=== PATIENT | male | born 1960 | race Caucasian/White ===

== ENCOUNTER 2018-08-23 11:30 | Outpatient (RCR) | payer OTHER, MEDICAID, SELFPAY ==
--- NOTE | 2018-08-18 11:05 | ST.OPIE ---
Provider Information Visit Care Team Role Provider Type Chico Osman MD Attending Provider Non-Staff Primary Care Provider Specialty: Medical Address: [address] [place] [address], [place], [address] Email: Speech-Language Pathology Initial Evaluation PROVISIONING ANALYST Cognitive/Memory Evaluation Start: 08/17/18 12:55 Freq: Status: Active Protocol: Document 08/16/18 12:55 TLC (Rec: 08/17/18 13:33 TLC [id number]) Evaluation of Cognition Session Time Visit Start Time 11:30 Visit Stop Time 12:15 Total Visit Minutes 45 Visit Information Visit Number 1 Plan of Care Dates 08/16/18-11/16/18 Next Note Type Next Note Type Treatment Note Referral Referring Physician Phoebe Reason for Referral CVA Past Medical History Patient History Mr. Jon is a right hand dominant 58 year old man with a past medical history of A- fib, not on anticoagulation, who was transferred to [facility] on with a right M2 stroke. He lives at home in [place], [place] with his 4 children and his . 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 Hearing Hearing Level Normal Vision Vision Status Impaired Comments decreased attention to left side [place] Language Language(s) Spoken in the Home Croatian Previous Therapy Previous Speech-Language Therapy Yes History of Therapy He was admitted to inpatient rehab at [facility] on 06/28. He received speech therapy for cognitive impairments and education. Currently, he receives outpatient Occupational therapy for visual attention, divided attention and fine motor skills. - Informal Assessment Receptive Language Normal Yes Expressive Language Normal Yes Assessment Findings Speech assessed informally in conversation. No dysarthria or apraxia observed. Occasional dysfluencies (initial sound repetition) were observed. Per patient, this is not new since his stroke and is not of concern at this time. Mr. Jon denied any difficulty with word finding. He endorses impairments in attention, left neglect, loss of big picture thinking. His adds she has noticed memory issues and decreased awareness of deficits. Formal Assessment Standardized Test Cognitive Linguistic Quick Test Administration Complete Results The CLQT is a criterion- referenced test with severity ratings for two age categories . It was designed to quickly assess the relative status of five cognitive domains ( attention, memory, language, executive functions, and visuospatial skills). Mr. Jon completed most tasks on the CLQT without difficulty including visual scanning symbol cancellation, clock drawing, symbol trail making, confrontation naming, design memory and two mazes. He self-corrected two errors on the clock drawing task. During short story retell, he earned 10 out of 18 points, losing points for leaving off details of the story. During generative naming, he named 15 total animals in one minute with two perseverations and 10 total words that begin with m . He had most difficulty with the design generation task which is a nonlinguistic task of creativity and mental flexibility. In the allotted time, he shannan 9 total designs with 3 perseverated designs. Tasks were scored and severity ratings were gathered based on norms for ages 18-69. Severity ratings for each cognitive domain are listed below. Attention: Within Normal Limits Memory: Within Normal Limits Exectuive Functions: Within Normal Limits Language: Within Normal Limits Visuospatial Skills: Within Normal Limits Clock Drawing: Within Normal Limits - Recommendations Recommendations Despite earning a severity rating score of within normal limits on all cognitive domains, Mr. Jon reports cognitive deficits relative to his own performance pre- stroke. A more thorough examination by a qualified neuropsychologist is recommended. In addition, a follow-up session to review results of testing and discuss and Mrs. Jon's goals is recommended. Inconveniences related to ferry travel from the [facility] will be considered when determining plan of care. A consultative basis may be appropriate in this case. Plan of care development is ongoing. Treatment Goals Short Term Goals and Mrs. Jon will return for a follow-up to include education on results of testing, recommendations and plan of care development. Referrals Other Neuropsychology Total Time Full Evaluation Time 45
--- NOTE | 2018-08-23 14:55 | ST.OPTN ---
Care Team Visit Care Team Role Provider Type Chico Osman MD Attending Provider Non-Staff Primary Care Provider Address: [address] [place] [address], [place], [address] [employer] TECHNICIAN Treatment Note [employer] TECHNICIAN Treatment Note Start: 08/17/18 12:55 Freq: Status: Active Protocol: Document 08/23/18 14:36 TLC (Rec: 08/23/18 14:55 TLC [id number]) Speech Pathology Treatment Note Session Time Visit Start Time 11:30 Visit Stop Time 12:15 Total Visit Minutes 45 Visit Information Visit Number 2 Plan of Care Dates 08/16/18-11/16/18 Insurance Information Lisa Setting Treatment Setting Outpatient Care Visit Type Note Type Treatment Note Next Note Type Next Note Type Treatment Note General Information General Information Mr. Jon is a right hand dominant 58 year old man with a past medical history of A- fib, not on anticoagulation, who was transferred to [facility] on with a right M2 stroke. He lives at home in [place], [place] with his 4 children and his . 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 Subjective Identification Type Name Others Present Family Observations/Patient Presentation Mr. Jon arrived on time accompanied by his who was present during the session . Chief Complaint(s) Cognitive Rehab Expectation/Goals: Patient Goals Return to work, return to driving, be able to multi task Patient Knowledge/Awareness of [employer] TECHNICIAN Role Good in Treatment Objective Treatment Activities Discussed results of Cognitive Linguistic Quick Test and provided education regarding cognitive strengths and weaknesses. Education was provided regarding cognitive process training through puzzles/games/tasks and compensatory strategy training , many of which Mr. Jon already implements. We discussed principles of neuroplasticity as well as spontaneous recovery. Education was provided on how to target focused attention at home and filtering out unimportant incoming stimuli to stay on task. Assessment Patient Response to Treatment Good Rehab Potential Good Impairments Identified Cognitive-Linguistic Skills Progress Towards Goals Good Progress Assessment of Improvement Results of cognitive assessment indicate Mr. Ratliff skills are within normal limits in all cognitive domains tested (memory, attention, visuospatial, executive functions, language) . Despite this, he and his raise concern over difficulty with multi-tasking, insight into deficits and processing speed. At this time , neuropsychologist evaluation is recommended to further assess cognition and determine plan of care. Reviewed with Patient Progress Being Made Home Exercise Program Patient/Caregiver Understanding Good Plan Comment Follow up as needed Length of Session 45 Minutes Therapeutic Contents Client Education Cognitive-Linguistic Training Therapy Recommendations Decrease Frequency of Rehabilitation
--- NOTE | 2018-10-04 10:19 | SLP.IPNOTE ---
Left message with patient's , Christina to follow-up as patient's last visit was 08/23/18.
--- NOTE | 2018-10-27 15:56 | ST.OPDS ---
Care Team Visit Care Team Role Provider Type Chico Osman MD Attending Provider Non-Staff Primary Care Provider Address: [address] [place] [address], [place], [address] FOUNDER CHAIRMAN AND CHIEF CREATIVE OFFICER Treatment Note FOUNDER CHAIRMAN AND CHIEF CREATIVE OFFICER Treatment Note Start: 08/17/18 12:55 Freq: Status: Active Protocol: Document 10/27/18 15:54 TLC (Rec: 10/27/18 15:56 TLC [id number]) Speech Pathology Treatment Note Visit Type Note Type Discharge Summary General Information General Information Mr. Jon is a right hand dominant 58 year old man with a past medical history of A- fib, not on anticoagulation, who was transferred to [facility] on with a right M2 stroke. He lives at home in [place], [place] with his 4 children and his . 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 Assessment Assessment of Improvement Results of cognitive assessment indicate Mr. Jon's skills are within normal limits in all cognitive domains tested (memory, attention, visuospatial, executive functions, language) . Despite this, he and his were concerned with difficulty with multi-tasking, insight into deficits and processing speed. He attended one follow-up session during which training in compensatory strategies and education was provided which they demonstrated understanding of. A neuropsychologist evaluation was recommended to further assess cognition and determine plan of care. He and his verbalized understanding. Plan Therapy Recommendations Discharge from Speech Therapy
== END 2018-10-27 17:05 | disposition home or self-care (01) ==
LOC: SP 11:30
PROVIDERS: PCP Internal Medicine; Visit Provider Internal Medicine
DX: I63.411 Cerebral infarction due to embolism of right middle cerebral artery (principal)
CPT/HCPCS: 96125

== ENCOUNTER 2018-09-06 10:30 | Outpatient (RCR) | payer OTHER, MEDICAID, SELFPAY ==
--- NOTE | 2018-08-04 13:32 | OT.OP.EVAL ---
Visit Care Team Role Provider Type Chico Osman MD Attending Provider Non-Staff Primary Care Provider Specialty: Medical Address: [address] [place] [address], [place], [address] Email: Occupational Therapy Initial Evaluation OT Outpatient Adult Evaluation Start: 08/02/18 12:44 Freq: Status: Active Protocol: Document 07/28/18 12:45 AMS (Rec: 08/02/18 13:44 AMS [email or web address]) General Information Visit Start Time 10:30 Visit Stop Time 11:30 Total Visit Minutes 60 Visit Number 04/07 Plan of Care Dates 07/28/18-10/20/18 Insurance Information [facility] Treatment Setting Outpatient Care Note Type Initial Evaluation Referring Physician Medicine; Zhang Patel MD Reason for Referral R M2 stroke Identification Confirmed Yes Identification Confirmed By ; Christina Medical History Patient is a 58 year-old right -hand dominant male referred to outpatient occupational therapy secondary to R M2 stroke with L visual field cut , L hemiparesis, L sunita- sensory loss, L neglect, impaired cognition. PMH: Significant for chronic a-fib; patient declined cardiac ablation approximately 1 year ago. Received inpatient OT, PT , and CHAIR INSPECTOR AND LEVELER therapy services. Previous Therapy/Therapies Yes Social History Patient resides with his and 4 children in [place], [place] in ranch style home w/ no steps to enter. 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 Cognition Comment Impaired Comments Impaired Vision Comments Impaired Observations Observations Decreased attention to L body of space; verbally reminds self to attend to left side/ body of space. Able to correctly identify 34/36 matches w/ visual scanning 2 different letter activity; erratic visual scanning pattern w/ re-checking to identify 7 additional items after initial sweep. Able to correctly identify 39/40 w/ visual scanning w/ 2 different 2-digit numbers. Visual fatigue. Muscle Testing Left Flexion 4+ Good+ Extension 4+ Good+ Abduction (C5) 4 Good Adduction 5 Normal External Rotation 4+ Good+ Internal Rotation 5 Normal Horizontal Abduction 4+ Good+ Horizontal Adduction 5 Normal Right Flexion 5 Normal Extension 5 Normal Abduction (C5) 5 Normal Adduction 5 Normal External Rotation 5 Normal Internal Rotation 5 Normal Horizontal Abduction 5 Normal Horizontal Adduction 5 Normal Left Flexion (C6) 5 Normal Extension (C7) 4+ Good+ Right Flexion (C6) 5 Normal Extension (C7) 5 Normal Neurological Assessment - Adult Finger to Nose Test Minimal Impairment Finger Opposition Test w/ increased effort EO/EC Comments Decreased awareness of digits in space w/ order different than oppositional test w/ L. Fine Motor Left Level of Ability Mild Impairment Observations Mild impairment; decreased separation of the 2 sides of the hand; decreased coordination of the radial side of the hand; decreased shifting/complex rotation Goals Treatment Initiated HEP. Instructed in in-hand manipulation and kinesthetic activities relative to L UE. Instructed in visual attention activities to increase attention to L side/ability to process information to L body of space . Instructed in divided attention tasks w/ in-hand manipulation and increasing auditory distraction w/ task execution (simple introduction ). Short Term Goals 1. Don will demonstrate increased attention to left body of space, as well as increased ability to respond to visual stimuli presented to the left of body, as evidenced by Don's ability to successfully catch tossed tennis ball 9 out of 10 trials while seated, with ball being thrown above eye level from the left. 2. Don will demonstrate increased attention to left body of space, as well as increased ability to respond to visual stimuli presenting to the left of the body, as evidenced by Don's ability to successfully throw and catch 500 gram ball at angled trampoline in square pattern 9 out of 10 trials, while seated. 3. Don will demonstrate improved in-hand manipulation skills of the affected hand, as evidenced by ability to rotate 2 medium-sized bouncy balls around one another in palm of hand x 10 trials in both directions, with modified independence. Alf Goals 1. Don will be modified independent with home exercise program utilizing provided written and visual instructions from therapist. Assessment/Plan Patient Response Fair Rehabilitation Potential Good Impairments Identified Attention Cognition Coordination/Dexterity Functional Activities Motor Function Weakness Recreational Activities Meaningful Activities Insight Vision Treatment Assessment Patient is a 58 year-old right -hand dominant male referred to outpatient occupational therapy secondary to R M2 stroke with L visual field cut , L hemiparesis, L sunita- sensory loss, L neglect, impaired cognition. PMH: Significant for chronic a-fib; patient declined cardiac ablation approximately 1 year ago. Received inpatient OT, PT , and CHAIR INSPECTOR AND LEVELER therapy services. PLOF: Independent with execution of BADLS and IADLS. 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 Evaluation findings: Right hand dominant male; decreased IADL independence compared to PLOF; impaired cognition; decreased insight; decreased divided attention; decreased ability to process multiple forms of input at the same time; auditory sensitivities; weakness; impaired vision; L sided neglect; tendency towards visual exploration to the right of space; decreased activity tolerance; decreased awareness of L UE in space; visual fatigue; erratic visual scanning pattern; decreased in-hand manipulation skills of L hand; and decreased use of energy conservation techniques . Patient would likely benefit from outpatient occupational therapy to address these areas in order to maximize his independence and ability to return to PLOF. Home Exercise Program Please refer to treatment section of note for specific details. Reviewed with Patient Goals Progress Being Made Home Exercise Program Patient Understanding Fair Comment 12 weeks Treatment Frequency Once a Week Therapeutic Contents Active Range of Motion Client Education Cognitive Skills Development Functional Activities Home Exercise Program Joint Protection Manual Therapy Education Neurodevelopment Treatment Neuromuscular Re-Education Self-Care Stretching/Flexibility Activities Therapeutic Activities Therapeutic Exercises Modalities Sensory Re-education Modalities As Needed As Prescribed Patient Instruction Home Exercise Program Plan of Care Questions/Concerns
--- NOTE | 2018-08-05 17:25 | OT.OP.TRT ---
Visit Care Team Role Provider Type Chico Osman MD Attending Provider Non-Staff Primary Care Provider Specialty: Medical Address: [address] [place] [address], [place], [place], [facility][note 3] Email: Occupational Therapy Treatment Note OT Outpatient Treatment Note - Adult Start: 08/02/18 12:44 Freq: Status: Active Protocol: Document 08/02/18 17:10 AMS (Rec: 08/05/18 17:25 AMS [email or web address]) OT Outpatient Adult Treatment Note Session Time Visit Start Time 07:45 Visit Stop Time 08:35 Total Visit Minutes 50 Visit Information Plan of Care Dates 07/28/18-10/20/18 Setting Treatment Setting Outpatient Care Visit Type Note Type Treatment Note General Information General Information Patient is a 58 year-old right -hand dominant male referred to outpatient occupational therapy secondary to R M2 stroke with L visual field cut , L hemiparesis, L sunita- sensory loss, L neglect, impaired cognition. PMH: Significant for chronic a-fib; patient declined cardiac ablation approximately 1 year ago. Received inpatient OT, PT , and E[facility] therapy services. - Subjective Identification Type Name Identification Reconciled With Intake Sheet Others Present Family Observations I have been practicing the hand exercise per Don. Loss of Function Marked Degree Effect on Activity Marked Degree Effect on Daily Life Marked Degree - Objective Objective Measurements Don was accompanied by his to OT outpatient treatment session. Short Term Goals 1. Don will demonstrate increased attention to left body of space, as well as increased ability to respond to visual stimuli presented to the left of body, as evidenced by Don's ability to successfully catch tossed tennis ball 9 out of 10 trials while seated, with ball being thrown above eye level from the left. 2. Don will demonstrate increased attention to left body of space, as well as increased ability to respond to visual stimuli presenting to the left of the body, as evidenced by Don's ability to successfully throw and catch 500 gram ball at angled trampoline in square pattern 9 out of 10 trials, while seated. 3. Don will demonstrate improved in-hand manipulation skills of the affected hand, as evidenced by ability to rotate 2 medium-sized bouncy balls around one another in palm of hand x 10 trials in both directions, with modified independence. Glove Cleaner Goals 1. Don will be modified independent with home exercise program utilizing provided written and visual instructions from therapist. - - Assessment Patient Response to Treatment Fair Rehab Potential Good Impairments Identified Attention Coordination/Dexterity Functional Activities Motor Function Weakness Recreational Activities Meaningful Activities Insight Motor Planning Eye-Hand Coordination Assessment of Improvement Decreased attention to L body of space; increased visual exploration to the right. Cues self to attend to left side/ body of space. Decreased speed of processing of information positioned to the left of space. (+) visual fatigue reported 75% into administration of MVPT-4. Patient to be seeing neurologist and automotive paint technician on of this week; requested that get copies of reports if able. Home Exercise Program Education re: energy conservation/resting. Patient verbalized understanding. Reviewed with Patient/Caregiver Goals Progress Being Made Home Exercise Program Patient/Caregiver Understanding Fair - Plan Therapy Recommendations Continue with Current Program Advance per Rehabilitation Protocol
--- NOTE | 2018-08-16 14:30 | OT.OP.TRT ---
Visit Care Team Role Provider Type Chico Osman MD Attending Provider Non-Staff Primary Care Provider Specialty: Medical Address: [address] [place] [address], [place], [place], [facility] Email: Occupational Therapy Treatment Note OT Outpatient Treatment Note - Adult Start: 08/02/18 12:44 Freq: Status: Active Protocol: Document 08/16/18 14:16 AMS (Rec: 08/16/18 14:30 AMS [email or web address]) OT Outpatient Adult Treatment Note Session Time Visit Start Time 10:30 Visit Stop Time 11:18 Total Visit Minutes 48 Visit Information Visit Number 06/05 Plan of Care Dates 07/28/18-10/20/18 Setting Treatment Setting Outpatient Care Visit Type Note Type Treatment Note General Information General Information Patient is a 58 year-old right -hand dominant male referred to outpatient occupational therapy secondary to R M2 stroke with L visual field cut , L hemiparesis, L sunita- sensory loss, L neglect, impaired cognition. PMH: Significant for chronic a-fib; patient declined cardiac ablation approximately 1 year ago. Received inpatient OT, PT , and DADO OPERATOR therapy services. - Subjective Identification Type Name Identification Reconciled With Intake Sheet Others Present Family Observations I only went to the heart doctor. They shocked my heart per Don. Now I don't have to worry about his heart rate/ heart beat. He has been complaining about losing his overall strength per . Loss of Function Marked Degree Effect on Activity Marked Degree Effect on Daily Life Marked Degree - Objective Objective Measurements Don was accompanied by his to OT outpatient treatment session. (+) L UE tightness out of typical UE sunita pattern. (+) compensatory patterns observed w/ PNF diagonal R knee to L of body; (+) bending of elbow and tendency towards pronated posturing of distal UE. QuickDASH UE Outcome Measure score = 0.0. Short Term Goals 1. Don will demonstrate increased attention to left body of space, as well as increased ability to respond to visual stimuli presenting to the left of the body, as evidenced by Don's ability to successfully throw and catch 500 gram ball at angled trampoline in square pattern 9 out of 10 trials, while seated. 2. Don will demonstrate improved in-hand manipulation skills of the affected hand, as evidenced by ability to rotate 2 medium-sized bouncy balls around one another in palm of hand x 10 trials in both directions, with modified independence. GOALS MET Don will demonstrate increased attention to left body of space, as well as increased ability to respond to visual stimuli presented to the left of body, as evidenced by Don's ability to successfully catch tennis ball 10/10 trials while seated , with ball being thrown above eye level from the left. *MET 08/16/18 Jail Goals 1. Don will be modified independent with home exercise program utilizing provided written and visual instructions from therapist. - Treatment 2 Descriptor Processing of visual information to L side of space 1 Descriptor Attention to L side of space Exercises 3 Descriptor Sh abd Side Left Body Position Sitting Sets 1 Repetitions 5 Resistance TB #2 2 Descriptor PNF diagonals Side Left Body Position Sitting Sets 1 Repetitions 5 Resistance TB #2 1 Descriptor L UE PROM Door stretch - Assessment Patient Response to Treatment Fair Rehab Potential Good Impairments Identified Attention Coordination/Dexterity Functional Activities Motor Function Weakness Recreational Activities Meaningful Activities Insight Motor Planning Eye-Hand Coordination Assessment of Improvement Decreased attention to L body of space; increased visual exploration to the right. Improving ability to process visual information to left side of space; improving eye- hand coordination. This is evidenced by Don meeting short term goal in this area. Decreased activity tolerance; decreased motor coordination of L UE. (+) UE tightness into typical sunita pattern. Upgraded HEP to address UE function/strength and overall endurance. Upgrade HEP as able relative to UE - ROM/strength /endurance. Decreased divided attention; skipping w/ order of alphabet noted w/ therapist attempting to distract w/ verbal conversation w/ therapist. 75% accurate w/ alternating boards w/ visual scanning task. Recommend reassessing in-hand manipulation abilities. Home Exercise Program Provided written/visual instructions for UE strengthening out of sunita pattern - sh abd, PNF diagonal (R knee to left body of space ). Provided TB #2 for home use ; instruction to avoid strengthening compensatory patterns w/ focus on technique . Recommended swimming w/ UE stretches prior to entering pool; recommended no more than 30 minutes in the pool w/ treading water and executing different swim strokes (breast stroke, back stroke, front stroke, butterfly stroke). Discussed being able to touch bottom of pool. Patient verbalized understanding. Reviewed with Patient/Caregiver Goals Progress Being Made Home Exercise Program Patient/Caregiver Understanding Fair - Plan Therapy Recommendations Continue with Current Program Advance per Rehabilitation Protocol
--- NOTE | 2018-08-23 14:32 | OT.OP.TRT ---
Visit Care Team Role Provider Type Chico Osman MD Attending Provider Non-Staff Primary Care Provider Specialty: Medical Address: [address] [place] [address], [place], [place], [facility] Email: Occupational Therapy Treatment Note OT Outpatient Treatment Note - Adult Start: 08/02/18 12:44 Freq: Status: Active Protocol: Document 08/23/18 14:05 AMS (Rec: 08/23/18 14:32 AMS [id number]) OT Outpatient Adult Treatment Note Session Time Visit Start Time 10:30 Visit Stop Time 11:20 Total Visit Minutes 50 Visit Information Visit Number 07/06 Plan of Care Dates 07/28/18-10/20/18 Setting Treatment Setting Outpatient Care Visit Type Note Type Treatment Note General Information General Information Patient is a 58 year-old right -hand dominant male referred to outpatient occupational therapy secondary to R M2 stroke with L visual field cut , L hemiparesis, L sunita- sensory loss, L neglect, impaired cognition. PMH: Significant for chronic a-fib; patient declined cardiac ablation approximately 1 year ago. 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 - Subjective Identification Type Name Identification Reconciled With Intake Sheet Others Present Family Observations He has always walked like that per in re: stride without contralateral arm swing. Loss of Function Marked Degree Effect on Activity Marked Degree Effect on Daily Life Marked Degree - Objective Objective Measurements Don was accompanied by his to OT. 08/23/18= (+) slight L sh elevation without movement; (-) contralateral arm swing w/ gait (however PLOF). (+) L UE tightness out of typical UE sunita pattern. Max diff motor planning sh circles, 'I', 'T', and 'Y'. Tendency towards prox trunk rotation when prone on mat. Decreased ability to multi- task compared to PLOF. QuickDASH UE Outcome Measure score = 0.0. Short Term Goals 1. Don will demonstrate improved in-hand manipulation skills of the affected hand, as evidenced by ability to rotate 2 medium-sized bouncy balls around one another in palm of hand x 10 trials in both directions, with modified independence. 2. Don will be able to juggle basketball between hands, with hands positioned above eye-level/head, x 1 minute without rest breaks and /or use of compensatory strategies, while seated. 6/11 /19= 25% met 3. Don will be able to utilize rowing machine x 3 minutes, at level 1, without rest breaks and/or use of compensatory strategies. = NEW GOAL GOALS MET Successfully caught tennis ball 10/10 trials while seated , with ball being thrown above eye level from the left. *MET 08/16/18 Successfully caught and threw 500 gram ball at angled trampoline to the L in square pattern 10/10 trials seated. * MET 08/23/18 Half-Way Goals 1. Don will be modified independent with home exercise program utilizing provided written and visual instructions from therapist. = HEP UPGRADED 2. Don will demonstrate improved posture and functional ability of the affected upper extremity, as evidenced by ability to manage personal backpack with straps over both shoulders on daily basis based on self/'s report. 08/23/18= NEW GOAL; currently manages w/ strap only over R shoulder - Treatment 2 Descriptor Processing of visual information to L side of space Angled trampoline; 500 and 1000 gm ball 1 Descriptor Attention to L side of space Exercises 5 Descriptor Neuro Trunk rotation = basketball 3 x 10 UE PNF diagonals = basketball 3 x 10 UE ball dribbling above head 1 x 20 sec Complexity Upgraded 4 Descriptor T,I,Y Side Both Body Position Prone Sets 2 Repetitions 5 Complexity Upgraded 3 Descriptor Sh abd Side Left Body Position Sitting Sets 1 Repetitions 5 Resistance TB #2 2 Descriptor PNF diagonals Side Left Body Position Sitting Sets 1 Repetitions 5 Resistance TB #2 1 Descriptor L UE ROM 5# weight for sh depression standing, 1 rep x 10 sec Sh circles - Assessment Patient Response to Treatment Fair Rehab Potential Good Impairments Identified Attention Coordination/Dexterity Functional Activities Motor Function Weakness Recreational Activities Meaningful Activities Insight Motor Planning Eye-Hand Coordination Assessment of Improvement Improving ability to process visual information to left side of space; improving eye- hand coordination. This is evidenced by Don meeting short term goal in this area. Continued presentation of tightness of L UE, as well as left side of body. (+) L sh elevation noted at rest w/ muscular tightness of midback w/ decreased initial inability to execute T, Y, and I's with L UE. Upgraded HEP to address this area. Education completed re: importance of daily stretching. Recommended use of both straps w/ backpack . Decreased ability to process multi input; decreased tolerance for auditory input. Decreased awareness of L UE in space; tendency to bring into 45 degree angle w/ figure 8s to the side of body. Recommend that therapist continues to address L UE motor planning, kinesthetic awareness, object manipulation abilities, overall endurance/activity tolerance, and executive function abilities. Home Exercise Program Upgraded. Provided written and visual instructions for HEP; I, T, Y prone w/ 2 sets of 10 reps. 1/2 bolster chest stretch on daily basis. Basketball trunk rotation for UB/LB dissociation; weight to assist w/ sh depression; basketball diagonals for ROM/ neuro rehab; basketball dribbling above head for endurance without rest breaks. Recommended distraction/ questions on daily basis to support multi processing/ divided attention. was present throughout treatment session; both and denied questions. Reviewed with Patient/Caregiver Goals Progress Being Made Home Exercise Program Patient/Caregiver Understanding Fair - Plan Therapy Recommendations Continue with Current Program Advance per Rehabilitation Protocol
--- NOTE | 2018-09-06 11:49 | OT.OP.TRT ---
Visit Care Team Role Provider Type Chico Osman MD Attending Provider Non-Staff Primary Care Provider Specialty: Medical Address: [address] [place] [address], [place], [place], [facility] Email: Occupational Therapy Treatment Note OT Outpatient Treatment Note - Adult Start: 08/02/18 12:44 Freq: Status: Active Protocol: Document 09/06/18 11:26 AMS (Rec: 09/06/18 11:48 AMS [id number]) OT Outpatient Adult Treatment Note Session Time Visit Start Time 10:30 Visit Stop Time 11:20 Total Visit Minutes 50 Visit Information Visit Number 08/05 Plan of Care Dates 07/28/18-10/20/18 Setting Treatment Setting Outpatient Care Visit Type Note Type Treatment Note General Information General Information Patient is a 58 year-old right -hand dominant male referred to outpatient occupational therapy secondary to R M2 stroke with L visual field cut , L hemiparesis, L sunita- sensory loss, L neglect, impaired cognition. PMH: Significant for chronic a-fib; patient declined cardiac ablation approximately 1 year ago. 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 - Subjective Identification Type Name Identification Reconciled With Intake Sheet Others Present Family Observations I went back into a-fib not last but the previous . I might be having the ablation surgery in October and another procedure next week to make sure I am not in a-fib until then per Don. Loss of Function Marked Degree Effect on Activity Marked Degree Effect on Daily Life Marked Degree - Objective Objective Measurements Don was seen 1:1 for session . 08/23/18= (+) slight L sh elevation without movement; (- ) contralateral arm swing w/ gait (however PLOF). (+) L UE tightness out of typical UE sunita pattern. Max diff motor planning sh circles, 'I', 'T', and 'Y'. Tendency towards prox trunk rotation when prone on mat. Decreased ability to multi-task compared to PLOF. QuickDASH UE Outcome Measure score = 0.0. Short Term Goals 1. Don will be able to juggle basketball between hands, with hands positioned above eye-level/head, x 1 minute without rest breaks and /or use of compensatory strategies, while seated. 08/23= 25% met 2. Don will be able to utilize rowing machine x 3 minutes, at level 1, without rest breaks and/or use of compensatory strategies. = Hold given recent a-fib 3. Don will demonstrate decreased sensitivity to auditory input, as evidenced by ability to match metronome beat x 10 repetitions, x 3 different speeds, with no more than 2 errors overall, with modified independence. 09/06/18 = 25% met GOALS MET Successfully caught tennis ball 10/10 trials while seated , with ball being thrown above eye level from the left. *MET 08/16/18 Successfully caught and threw 500 gram ball at angled trampoline to the L in square pattern 10/10 trials seated. * MET 08/23/18 Rotated 2 medium-sized bouncy balls around one another in palm x 10 trials, both directions, w/ mod I. *MET Budget Director Goals 1. Don will be modified independent with home exercise program utilizing provided written and visual instructions from therapist. = HEP UPGRADED 2. Don will demonstrate improved posture and functional ability of the affected upper extremity, as evidenced by ability to manage personal backpack with straps over both shoulders on daily basis based on self/'s report. 09/06/18= NEW GOAL; currently manages w/ strap only over R shoulder - Treatment 3 Descriptor Executive functions 3-step cards w/ and without metronome Eye-hand coordination w/ metronome Complexity Upgraded 2 Descriptor Processing of visual information to L side of space Auditory & Executive Function task Complexity Upgraded 1 Descriptor Attention to L side of space Exercises 5 Descriptor Neuro Trunk rotation = basketball 3 x 10 UE PNF diagonals = basketball 3 x 10 UE ball dribbling above head 1 x 20 sec Complexity Upgraded 4 Descriptor T,I,Y Side Both Body Position Prone Sets 2 Repetitions 5 Complexity Upgraded 1 Descriptor L UE ROM 5# weight for sh depression standing, 1 rep x 10 sec Sh circles - Assessment Patient Response to Treatment Fair Rehab Potential Good Impairments Identified Attention Coordination/Dexterity Functional Activities Motor Function Weakness Recreational Activities Meaningful Activities Insight Motor Planning Eye-Hand Coordination Assessment of Improvement Improving in-hand manipulation of the left hand compared to time of initial evaluation; this is evidenced by Don meeting short term goal in this area. Decreased tolerance for auditory input, as observed w/ metronome. Maximum difficulty consistently matching beat of rhythm w/ eye -hand coordination/card sequencing activity. No changes to HEP UE/activity tolerance given a-fib presentation. Focus on auditory processing/ability to differentiate between important and unimportant information from environment/ multiprocessing/executive functions. Recommend that therapist continues to address L UE motor planning, kinesthetic awareness, object manipulation abilities, overall endurance/activity tolerance, and executive function abilities. Home Exercise Program Upgraded. Recommended carry- over of metronome activities. Don denied questions. Reviewed with Patient/Caregiver Goals Progress Being Made Home Exercise Program Patient/Caregiver Understanding Fair - Plan Therapy Recommendations Continue with Current Program Advance per Rehabilitation Protocol Additional Therapy Recommendations Informed Don of no additional visits/ to call and schedule later
--- NOTE | 2018-11-15 11:23 | OT.OP.DC ---
Visit Care Team Role Provider Type Chico Osman MD Attending Provider Non-Staff Primary Care Provider Address: [address] [place] [address], [place], [address] Email: OT Outpatient OT Outpatient Adult Evaluation Start: 08/02/18 12:44 Freq: Status: Active Protocol: Document 07/28/18 12:45 AMS (Rec: 08/02/18 13:44 AMS [email or web address]) General Information Session Time Visit Start Time 10:30 Visit Stop Time 11:30 Total Visit Minutes 60 Visit Information Visit Number 04/07 Plan of Care Dates 07/28/18-10/20/18 Insurance Information [facility] Setting Treatment Setting Outpatient Care Visit Type Note Type Initial Evaluation Referral Referring Physician Medicine; Zhang Patel MD Reason for Referral R M2 stroke Identification Identification Confirmed Yes Identification Confirmed By ; Christina Medical Information Medical History Patient is a 58 year-old right -hand dominant male referred to outpatient occupational therapy secondary to R M2 stroke with L visual field cut , L hemiparesis, L sunita- sensory loss, L neglect, impaired cognition. PMH: Significant for chronic a-fib; patient declined cardiac ablation approximately 1 year ago. Received inpatient OT, PT , and [facility] therapy services. Previous Therapy Previous Therapy/Therapies Yes Social Information Social History Patient resides with his and 4 children in [place], [place] in ranch style home w/ no steps to enter. 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 Cognition Attention Comment Impaired Problem Solving Comments Impaired Vision Vision Comments Impaired Observations Observations Observations Decreased attention to L body of space; verbally reminds self to attend to left side/ body of space. Able to correctly identify 34/36 matches w/ visual scanning 2 different letter activity; erratic visual scanning pattern w/ re-checking to identify 7 additional items after initial sweep. Able to correctly identify 39/40 w/ visual scanning w/ 2 different 2-digit numbers. Visual fatigue. Muscle Testing Shoulder Strength Left Flexion 4+ Good+ Extension 4+ Good+ Abduction (C5) 4 Good Adduction 5 Normal External Rotation 4+ Good+ Internal Rotation 5 Normal Horizontal Abduction 4+ Good+ Horizontal Adduction 5 Normal Right Flexion 5 Normal Extension 5 Normal Abduction (C5) 5 Normal Adduction 5 Normal External Rotation 5 Normal Internal Rotation 5 Normal Horizontal Abduction 5 Normal Horizontal Adduction 5 Normal Elbow/Forearm Strength Left Flexion (C6) 5 Normal Extension (C7) 4+ Good+ Right Flexion (C6) 5 Normal Extension (C7) 5 Normal Neurological Assessment - Adult Coordination Finger to Nose Test Minimal Impairment Finger Opposition Test w/ increased effort EO/EC Comments Decreased awareness of digits in space w/ order different than oppositional test w/ L. Fine Motor In-Hand Manipulation Left Level of Ability Mild Impairment Observations Mild impairment; decreased separation of the 2 sides of the hand; decreased coordination of the radial side of the hand; decreased shifting/complex rotation Goals Treatment Treatment Initiated HEP. Instructed in in-hand manipulation and kinesthetic activities relative to L UE. Instructed in visual attention activities to increase attention to L side/ability to process information to L body of space . Instructed in divided attention tasks w/ in-hand manipulation and increasing auditory distraction w/ task execution (simple introduction ). Short Term Goals Short Term Goals 1. Don will demonstrate increased attention to left body of space, as well as increased ability to respond to visual stimuli presented to the left of body, as evidenced by Don's ability to successfully catch tossed tennis ball 9 out of 10 trials while seated, with ball being thrown above eye level from the left. 2. Don will demonstrate increased attention to left body of space, as well as increased ability to respond to visual stimuli presenting to the left of the body, as evidenced by Don's ability to successfully throw and catch 500 gram ball at angled trampoline in square pattern 9 out of 10 trials, while seated. 3. Don will demonstrate improved in-hand manipulation skills of the affected hand, as evidenced by ability to rotate 2 medium-sized bouncy balls around one another in palm of hand x 10 trials in both directions, with modified independence. Senior Living Goals Senior Living Goals 1. Don will be modified independent with home exercise program utilizing provided written and visual instructions from therapist. Assessment/Plan Assessment Patient Response Fair Rehabilitation Potential Good Impairments Identified Attention,Cognition, Coordination/Dexterity, Functional Activities,Motor Function,Weakness,Recreational Activities,Meaningful Activities,Insight,Vision Treatment Assessment Patient is a 58 year-old right -hand dominant male referred to outpatient occupational therapy secondary to R M2 stroke with L visual field cut , L hemiparesis, L sunita- sensory loss, L neglect, impaired cognition. PMH: Significant for chronic a-fib; patient declined cardiac ablation approximately 1 year ago. Received inpatient OT, PT , and [facility] therapy services. PLOF: Independent with execution of BADLS and IADLS. 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 Evaluation findings: Right hand dominant male; decreased IADL independence compared to PLOF; impaired cognition; decreased insight; decreased divided attention; decreased ability to process multiple forms of input at the same time; auditory sensitivities; weakness; impaired vision; L sided neglect; tendency towards visual exploration to the right of space; decreased activity tolerance; decreased awareness of L UE in space; visual fatigue; erratic visual scanning pattern; decreased in-hand manipulation skills of L hand; and decreased use of energy conservation techniques . Patient would likely benefit from outpatient occupational therapy to address these areas in order to maximize his independence and ability to return to PLOF. Home Exercise Program Please refer to treatment section of note for specific details. Reviewed with Patient Goals,Progress Being Made,Home Exercise Program Patient Understanding Fair Plan Comment 12 weeks Treatment Frequency Once a Week Therapeutic Contents Active Range of Motion,Client Education,Cognitive Skills Development,Functional Activities,Home Exercise Program,Joint Protection, Manual Therapy,Education, Neurodevelopment Treatment, Neuromuscular Re-Education, Self-Care,Stretching/ Flexibility Activities, Therapeutic Activities, Therapeutic Exercises, Modalities,Sensory Re- education Modalities As Needed,As Prescribed Patient Instruction Home Exercise Program,Plan of Care,Questions/Concerns Sensory Assessment Sensory Profile2 Functional Wrist/Hand Scan Hand Side OT Outpatient Treatment Note - Adult Start: 08/02/18 12:44 Freq: Status: Active Protocol: Document 11/15/18 11:20 AMS (Rec: 11/15/18 11:22 AMS [email or web address]) OT Outpatient Adult Treatment Note Visit Information Visit Number 08/05 Plan of Care Dates 07/28/18-10/20/18 Setting Treatment Setting Outpatient Care Visit Type Note Type Discharge Summary General Information General Information Mr. Jon is a right hand dominant 58 year old man with a past medical history of A- fib, not on anticoagulation, who was transferred to [facility] on with a right M2 stroke. He lives at home in [place], [place] with his 4 children and his . 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 - Subjective Observations Patient has not been seen by outpatient OT since 09/06/18. Recommend d/c from outpatient OT at this time. Will re- evaluate as deemed appropriate by PCP. Loss of Function Marked Degree Effect on Activity Marked Degree Effect on Daily Life Marked Degree - Objective Short Term Goals ALL GOALS D/C 11/15/18 1. Don will be able to juggle basketball between hands, with hands positioned above eye-level/head, x 1 minute without rest breaks and /or use of compensatory strategies, while seated. 08/23= 25% met 2. Don will be able to utilize rowing machine x 3 minutes, at level 1, without rest breaks and/or use of compensatory strategies. = Hold given recent a-fib 3. Don will demonstrate decreased sensitivity to auditory input, as evidenced by ability to match metronome beat x 10 repetitions, x 3 different speeds, with no more than 2 errors overall, with modified independence. 09/06/18 = 25% met GOALS MET Successfully caught tennis ball 10/10 trials while seated , with ball being thrown above eye level from the left. *MET 08/16/18 Successfully caught and threw 500 gram ball at angled trampoline to the L in square pattern 10/10 trials seated. * MET 08/23/18 Rotated 2 medium-sized bouncy balls around one another in palm x 10 trials, both directions, w/ mod I. *MET Forensic Engineer Goals ALL GOALS D/C 11/15/18 1. Don will be modified independent with home exercise program utilizing provided written and visual instructions from therapist. = HEP UPGRADED 2. Don will demonstrate improved posture and functional ability of the affected upper extremity, as evidenced by ability to manage personal backpack with straps over both shoulders on daily basis based on self/'s report. 09/06/18= NEW GOAL; currently manages w/ strap only over R shoulder - - Assessment Assessment of Improvement Patient has not been seen by outpatient OT since 09/06/18. Recommend d/c from outpatient OT at this time. Will re- evaluate as deemed appropriate by PCP. - Plan Therapy Recommendations Discharge from Occupational Therapy Additional Therapy Recommendations Patient has not been seen by outpatient OT since 09/06/18.
== END 2018-09-07 12:29 ==
LOC: OT 10:30
PROVIDERS: PCP Internal Medicine; Visit Provider Internal Medicine
DX: I63.411 Cerebral infarction due to embolism of right middle cerebral artery (principal)
CPT/HCPCS: 97110; 97112; 97165; 97530